=== PATIENT | male | born 1990 ===

== ENCOUNTER 2024-11-23 07:48 | Outpatient (CLI) | payer OTHER, SELFPAY | END 2024-11-23 07:49 | disposition home or self-care (01) | LOC: AMB 11-25 10:56 | PROVIDERS: Visit Provider Family Medicine | DX: S29.9XXA Unspecified injury of thorax, initial encounter (principal); S49.90XA Unspecified injury of shoulder and upper arm, unspecified arm, initial encounter; R06.09 Other forms of dyspnea; W31.89XA Contact with other specified machinery, initial encounter; Y93.89 Activity, other specified; Y92.39 Other specified sports and athletic area as the place of occurrence of the external cause | CPT/HCPCS: A0425; A0427 ==